=== PATIENT | male | born 1950 | race Caucasian/White ===

== ENCOUNTER 2018-03-01 14:05 | Emergency (ER) | payer MEDICARE, BC ==
[2018-03-01] MEDS ORDERED: Famotidine 20 MG/2 ML SDV IVPUSH ONE (14:25)
[2018-03-01] MEDS ORDERED: Sodium Chloride 0.9% 10 ML Syringe FLUSH PRN (14:25)
[2018-03-01] MEDS ORDERED: diphenhydrAMINE 50 MG/ML SDV IVPUSH ONE (14:25)
[2018-03-01] MEDS ORDERED: methylPREDNISolone Sodium Succinate 125 MG/2 ML SDV IVPUSH ONE (14:26)
--- NOTE | 2018-03-01 14:36 | EDM.PDOC ---
ED HPI GENERAL MEDICAL PROBLEM - General Chief Complaint: Allergic Reaction Stated Complaint: TONGUE SWOLLEN Time Seen by Provider: 03/01/18 14:22 Source of Information: Reports: Patient History Limitations: Reports: No Limitations - History of Present Illness INITIAL COMMENTS - FREE TEXT/NARRATIVE: The patient presents with tongue edema. This started about 10am today. He has no shortness of breath but it has gotten worse. He has no history of this happening before. He has no fever, chills, cough, chest pain, abdominal pain, nausea or vomiting. He is on losartan an ARB but no lisinopril. He has no rash. Onset: Gradual Duration: Hour(s): Location: Reports: Face (Edema of his tongue) Severity: Moderate Improves with: Reports: None Worsens with: Reports: None Associated Symptoms: Reports: No Other Symptoms - Related Data Allergies Allergy/AdvReac Type Severity Reaction Status Date / Time ARB-Angiotensin Receptor Allergy Swollen Verified 03/01/18 15:01 Antagonist Tongue losartan Allergy Swollen Verified 03/01/18 14:25 Tongue Home Meds: Home Meds Aspirin [Adult Aspirin] 81 mg PO DAILY 03/01/18 [History] Clopidogrel [Plavix] 75 mg PO DAILY 03/01/18 [History] Fish Oil/[place]-3 Fatty Acids [Fish Oil 1,000 MG] 1 each PO BID 03/01/18 [History ] Pantoprazole [ProTONIX] 40 mg PO DAILY 03/01/18 [History] Simvastatin [Zocor] 40 mg PO BEDTIME 03/01/18 [History] amLODIPine Besylate [Amlodipine Besylate] 5 mg PO DAILY 03/01/18 [History] predniSONE [Prednisone] 40 mg PO DAILY #10 tablet 03/01/18 [Rx] ED ROS ALLERGIC REACTION - Review of Systems Review Of Systems: See Below Constitutional: Reports: No Symptoms HEENT: Reports: Other (Edema of his tongue) Respiratory: Reports: No Symptoms Cardiovascular: Reports: No Symptoms Endocrine: Reports: No Symptoms GI/Abdominal: Reports: No Symptoms : Reports: No Symptoms Musculoskeletal: Reports: No Symptoms Skin: Reports: No Symptoms ED EXAM GENERAL NO PERIP PULSE - Physical Exam Exam: See Below Exam Limited By: No Limitations General Appearance: Alert, No Apparent Distress Ears: Normal External Exam Nose: Normal Inspection Throat/Mouth: Other (Moderate edema to the tongue. He can open his mouth good.) Head: Atraumatic, Normocephalic Neck: Normal Inspection Respiratory/Chest: No Respiratory Distress, Lungs Clear, Normal Breath Sounds Cardiovascular: Regular Rate, Rhythm, No Edema, No Murmur GI/Abdominal: Soft, Non-Tender, No Organomegaly, No Mass Back Exam: Normal Inspection Extremities: Normal Inspection Neurological: Alert, Oriented, No Motor/Sensory Deficits Course - Vital Signs Last Recorded V/S: Last Vital Signs Temp 97.2 F 03/01/18 14:25 Pulse 70 03/01/18 14:25 Resp 16 03/01/18 14:25 BP 187/83 H 03/01/18 14:25 Pulse Ox 97 03/01/18 14:25 - Orders/Labs/Meds Orders: Active Orders 24 hr Category Date Time Status Peripheral IV Care [RC] . DIRECTED Care 03/01/18 14:25 Active Sodium Chloride 0.9% [Saline Flush] Med 03/01/18 14:25 Active 10 ml FLUSH ASDIRECTED PRN Peripheral IV Insertion Adult [OM.PC] Routine Oth 03/01/18 14:25 Ordered Medication Orders Sodium Chloride (Saline Flush) 10 ml FLUSH ASDIRECTED PRN PRN Reason: Keep Vein Open Last Admin: 03/01/18 14:35 Dose: 10 ml Meds: Medications Generic Name Dose Route Start Last Admin Trade Name Freq PRN Reason Stop Dose Admin Sodium Chloride 10 ml 03/01/18 14:25 03/01/18 14:35 Saline Flush FLUSH 10 ml ASDIRECTED PRN Administration Keep Vein Open Discontinued Medications Generic Name Dose Route Start Last Admin Trade Name Freq PRN Reason Stop Dose Admin Diphenhydramine HCl 50 mg 03/01/18 14:25 03/01/18 14:35 Benadryl IVPUSH 03/01/18 14:26 50 mg ONETIME ONE Administration Famotidine 20 mg 03/01/18 14:25 03/01/18 14:35 Pepcid IVPUSH 03/01/18 14:26 20 mg ONETIME ONE Administration Methylprednisolone Sodium Succinate 125 mg 03/01/18 14:26 03/01/18 14:34 Solu-Medrol IVPUSH 03/01/18 14:27 125 mg ONETIME ONE Administration - Re-Assessments/Exams Free Text/Narrative Re-Assessment/Exam: 03/01/18 15:34 I ordered an IV saline lock, benadryl 50mg IV, pepcid 20mg IV, and solu-medrol 125mg IV. His swelling is down. I will discharge him on some prednisone 40mg daily for 5 days, pepcid and benadryl. He should not take ARBs or EDI inhibitors. Departure - Departure Time of Disposition: 15:35 Disposition: Home, Self-Care 01 Condition: Good Clinical Impression: Angioedema Qualifiers: Encounter type: initial encounter Qualified Code(s): T78.3XXA - Angioneurotic edema, initial encounter - Discharge Information Prescriptions: predniSONE [Prednisone] 40 mg PO DAILY #10 tablet Referrals: Andrade Marcum MD [Primary Care Provider] - 1 Week Forms: ED Department Discharge Additional Instructions: Do not take the losartan anymore. You are allergic. You should avoid any other ARBs (antiotensin receptor blockers) and EDI (angitensin converting enzyme) inhibitors. Take the prednisone daily for 5 days. Take pepcid daily for 1 week. Take benadryl 50mg every 6 hours as needed for any more swelling. Please return if you are worse. Follow up with Dr Marcum in 1 week. - My Orders Last 24 Hours: My Active Orders 03/01/18 14:25 Peripheral IV Care [RC] . DIRECTED Sodium Chloride 0.9% [Saline Flush] 10 ml FLUSH ASDIRECTED PRN Peripheral IV Insertion Adult [OM.PC] Routine - Assessment/Plan Last 24 Hours: My Active Orders 03/01/18 14:25 Peripheral IV Care [RC] . DIRECTED Sodium Chloride 0.9% [Saline Flush] 10 ml FLUSH ASDIRECTED PRN Peripheral IV Insertion Adult [OM.PC] Routine
== END 2018-03-01 15:54 | disposition home or self-care (01) ==
LOC: JD.ED 14:05
DX: T78.3XXA Angioneurotic edema, initial encounter (principal); Z79.82 Long term (current) use of aspirin; Z79.899 Other long term (current) drug therapy; Z88.8 Allergy status to other drugs, medicaments and biological substances
CPT/HCPCS: 96374; 96375; 99284; J1200; J2930; J7050

== ENCOUNTER 2022-07-02 04:00 | Emergency (ER) | payer MEDICARE, BC ==
[2022-07-02] MEDS ORDERED: Aspirin 81 MG Tab.Chew ONE (04:09)
[2022-07-02] MEDS ORDERED: Nitroglycerin 0.4 MG Tab.SL ONE (04:10)
[2022-07-02] MEDS ORDERED: Tenecteplase 50 MG Kit IV ONE (04:14)
[2022-07-02] MEDS ORDERED: Tenecteplase 50 MG Kit ONE (04:15)
[2022-07-02] MEDS ORDERED: Aspirin 81 MG Tab.Chew PO ONE (04:18)
[2022-07-02] MEDS ORDERED: Sodium Chloride 0.9% 10 ML Syringe FLUSH PRN (04:18)
[2022-07-02] MEDS ORDERED: Heparin Sodium 5,000 Units/ML Vial IVPUSH ONE (04:21)
[2022-07-02] MEDS ORDERED: Heparin Sodium/D5W 25,000 UNITS/500 ML BAG IV SCH (04:30)
== END 2022-07-02 04:50 ==
LOC: JD.ED 04:00
DX: I21.3 ST elevation (STEMI) myocardial infarction of unspecified site (principal); E78.00 Pure hypercholesterolemia, unspecified; I10 Essential (primary) hypertension; Z88.8 Allergy status to other drugs, medicaments and biological substances; Z79.82 Long term (current) use of aspirin; Z79.899 Other long term (current) drug therapy
CPT/HCPCS: 36415; 71045; 80053; 83735; 84484; 85025; 85379; 85610; 92977; 93005; 96365; 96376; 99285; A9270; J1644; J3101; J3490